=== PATIENT | female | born 1945 | race Caucasian/White ===

== ENCOUNTER 2024-12-10 08:47 | Outpatient (REF) | payer MEDICARE, SELFPAY ==
[2024-12-10 10:23] LABS: Blood Urea Nitrogen 20 mg/dL (9-16); Estimated Glomerular Filt Rate > 60
== END 2024-12-10 08:48 | disposition home or self-care (01) ==
LOC: HO.LAB 08:47
PROVIDERS: PCP Internal Medicine; Visit Provider Psychiatry & Neurology Neurology
DX: G40.209 Localization-related (focal) (partial) symptomatic epilepsy and epileptic syndromes with complex partial seizures, not intractable, without status epilepticus (principal); I67.9 Cerebrovascular disease, unspecified
CPT/HCPCS: 36415; 82565; 84520

== ENCOUNTER 2024-12-18 08:20 | Outpatient (REF) | payer MEDICARE, SELFPAY ==
--- NOTE | ~2024-12-18 | CT_ITS ---
EXAMINATION: CTA BRAIN WITH CONTRAST (cerebral aneurysm) CLINICAL INFORMATION: Concerning cerebral aneurysm COMPARISON: None available. TECHNIQUE: CTA of the head was performed in the axial plane from the skull to vertex using 75 mL Omnipaque 350 intravenous contrast. Additional reformatted multiplanar images including maximum intensity projection MIP images are generated on the CT workstation. Noncontrast CT head from the skull base to vertex. This CT examination was performed using dose optimization techniques as appropriate, variously including the following: *Automated exposure control *Adjustment of mA and/or kV according to patient size (this includes techniques or standardized protocols for targeted exams where dose is matched to indication/reason for exam; i.e. extremities or head) *Use of iterative reconstruction technique DLP: 992 mGy centimeter. FINDINGS: The degree of stenosis determined by criteria similar to NASCET. Brain: Bilateral multifocal patchy and confluent deep periventricular white matter hypodensity involving centrum semiovale and silva radiata. No acute intracranial hemorrhage, mass effect, midline shift, hydrocephalus or herniation. Grade 1 matter differentiation is normal. Posterior cranial fossa contents demonstrated no gross hemorrhage or masses. There is a prominent basilar artery. Calcified plaques in the cavernous supraclinoid segments both ICAs. No air-fluid levels in the paranasal sinuses. For pneumatization left frontal sinus. Tympanic cavities and mastoid air cells are aerated. Brain CTA: Anterior cerebral circulation: ICAs: There is a 37 mm contrast filled saccular abnormality at the 4:00 position centered in the supraclinoid segment right ICA with a broad-based neck. Calcified plaques in the cavernous segments both ICA. No focal stenosis. No abrupt cut off. The ICA terminus segments demonstrated no vascular irregularity. MCA's: No focal stenosis or abrupt cut off. Normal patency. Bifurcation/trifurcation demonstrated normal vascular irregularity. ACAs: Normal patency. No focal stenosis. No abrupt cut off. No vascular irregularity. Anterior communicant artery is patent without vascular irregularity. The ophthalmic arteries are patent without vascular irregularity at the origin segment. Posterior cerebral circulation: V3/V4 segments: Normal patency. No focal stenosis. No intimal flap. Right vertebral artery is dominant. Posterior inferior cerebellar arteries are patent. There is a common trunk with the anterior inferior cerebellar arteries for both PICA. Basilar artery: Normal patency. No focal stenosis. No intimal flap. Basilar artery tip demonstrates no vascular irregularity. Superior cerebellar arteries are patent. authorization rep: Normal patency. No focal stenosis. No abrupt cut off. Ancillary findings: Normal enhancement without intraluminal filling defects within the main cerebral venous sinuses. No enhancing mass, intra-axial or extra-axial compartment of the cranium. 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 Atherosclerosis disease, cavernous segments both ICA. Right vertebral artery is dominant. Electronically signed by: Adam Espinal MD 12/18/2024 09:44 AM EDT
--- OUTSIDE RECORDS SUMMARY | 2024-12-18 08:32 | XMS_ITS | Clinical Summary ---
Author Organization [facility] Address [address] [place] [address] Phone Care Team Providers Care Cargo Mate Name Role Phone Rae Jon Primary Care Provider [phone] Surgical History Surgery Date Site/Laterality Comments COLONOSCOPY 01/21/09 PROCEDURE: HISTORICAL COLONOSCOPY; COMMENT: normal; repeat in ten years Medical History Medical History Date Comments Mixed hyperlipidemia 10/07/2006 DX:Mixed hy perlipidemia Family History Relation Name Status Comments Brother 1 Alive dm Brother 2 Alive Brother 3 Alive Father (Age 54) lung cance r Mother (Age 85) Sister Alive Social History Tobacco Use Types Packs/Day Years Used Date Smoking Tobacco: Never Alcohol Use Standard Drinks/Week Comments No 0 (1 standard drink = 0.6 oz pur e alcohol) Comments Unknown Sex and Gender Information Value Date Recorded Sex Assigned at Not on file Legal Sex Female 12:30 AM EST Gender Identity Not on file Sexual Orientation Not on file Obstetrics History Last Filed Vital Signs Vital Sign Reading Time Taken Comments Blood Pressure 150/95 01/24/2024 1:08 PM EDT Sit ting L Arm Pulse 80 11/15/2023 11:40 AM EST Temperature - - Respiratory Rate - - Oxygen Saturation - - Inhaled Oxygen Concentration - - Weight 70.3 kg (155 lb) 01/24/2024 1:08 PM EDT Height 152.4 cm (5') 01/24/2024 1:08 PM EDT Body Mass Index 30.27 01/24/2024 1:08 PM EDT Plan of Treatment Health Maintenance Due Date Last Done Comments Zoster Vaccines (1 of 2) 1993 Pneumococcal Vaccine: 50+ Years (2 of 2 - PCV) 07/15/2010 07/15/2009 RSV Immunization Adult Patients (1 - 1-dose 75+ series) 2018 Depression Screening 08/19/2022 Falls Risk Assessment 08/19/2022 Medicare Annual Wellness Visit 08/19/2022 Osteoporosis Screening (Bone Density Screening) 08/19/2022 Social Influencers of Health Screening 08/19/2022 COVID-19 Vaccine ( season) 2024 08/14/2021, 11/10/2020, 10/20/2020 Hypertension/CHF/CAD Annual BMP Blood Test 09/29/2025 09/29/2024 Cholesterol Screening (Lipid Panel) 09/29/2029 09/29/2024 DTaP,Tdap,and Td Vaccines (2 - Td or Tdap) 04/17/2034 04/17/2024 Influenza Vaccine Completed 08/26/2024, , 08/06/2022, Additional history exists HIB Vaccines Aged Out No longer eligi ble based on patient's age to complete this topic HPV Vaccines Aged Out No longer eligi ble based on patient's age to complete this topic Hepatitis A Vaccines Aged Out No long er eligible based on patient's age to complete this topic Hepatitis B Vaccines Aged Out No long er eligible based on patient's age to complete this topic IPV Vaccines Aged Out No longer eligi ble based on patient's age to complete this topic MMR Vaccines Aged Out No longer eligi ble based on patient's age to complete this topic Meningococcal ACWY Vaccine Aged Out N o longer eligible based on patient's age to complete this topic Meningococcal B Vacine Aged Out No lo nger eligible based on patient's age to complete this topic RSV Immunization Patients Under 20 months Aged Out No longer eligible based on patient's age to complete this topic Varicella Vaccines Aged Out No longer eligible based on patient's age to complete this topic Procedures Procedure Name Priority Date/Time Associated Diagnosis Comments CBC WITH AUTO DIFFERENTIAL Routine 09/29/2024 10:12 AM EST Laboratory tests ordered as part of a complete physical exam (CPE) TIA (transient ischemic attack) GERD (gastroesophageal reflux disease) HTN (hypertension) HLD (hyperlipidemia) MAGNESIUM Routine 09/29/2024 10:12 AM EST Laboratory tests ordered as part of a complete physical exam (CPE) TIA (transient ischemic attack) GERD (gastroesophageal reflux disease) HTN (hypertension) HLD (hyperlipidemia) HEMOGLOBIN A1C Routine 09/29/2024 10:12 AM EST Laboratory tests ordered as part of a complete physical exam (CPE) TIA (transient ischemic attack) GERD (gastroesophageal reflux disease) HTN (hypertension) HLD (hyperlipidemia) CBC AND DIFFERENTIAL Routine 09/29/2024 10:12 AM EST Laboratory tests ordered as part of a complete physical exam (CPE) TIA (transient ischemic attack) GERD (gastroesophageal reflux disease) HTN (hypertension) HLD (hyperlipidemia) THYROID STIMULATING HORMONE Routine 09/29/2024 10:12 AM EST Laboratory tests ordered as part of a complete physical exam (CPE) TIA (transient ischemic attack) GERD (gastroesophageal reflux disease) HTN (hypertension) HLD (hyperlipidemia) BASIC METABOLIC PANEL Routine 09/29/2024 10:12 AM EST Laboratory tests ordered as part of a complete physical exam (CPE) TIA (transient ischemic attack) GERD (gastroesophageal reflux disease) HTN (hypertension) HLD (hyperlipidemia) CREATINE KINASE Routine 09/29/2024 10:12 AM EST Laboratory tests ordered as part of a complete physical exam (CPE) TIA (transient ischemic attack) GERD (gastroesophageal reflux disease) HTN (hypertension) HLD (hyperlipidemia) ASPARTATE AMINOTRANSFERASE Routine 09/29/2024 10:12 AM EST Laboratory tests ordered as part of a complete physical exam (CPE) TIA (transient ischemic attack) GERD (gastroesophageal reflux disease) HTN (hypertension) HLD (hyperlipidemia) ALANINE AMINOTRANSFERASE Routine 10:12 AM EST Laboratory tests ordered as part of a complete physical exam (CPE) TIA (transient ischemic attack) GERD (gastroesophageal reflux disease) HTN (hypertension) HLD (hyperlipidemia) LIPID PANEL WITH REFLEX TO DIRECT LDL Routine 09/29/2024 10:12 AM EST Laboratory tests ordered as part of a complete physical exam (CPE) TIA (transient ischemic attack) GERD (gastroesophageal reflux disease) HTN (hypertension) HLD (hyperlipidemia) from Last 3 Months Results * (ABNORMAL) Lipid panel with reflex to direct LDL (09/29/2024 10:12 AM EST) Cholesterol 239(H) 0 - 200 mg/dL LAB CHEMISTRY METHOD 09/29/2024 12:30 PM EST [facility] Triglycerides 302(H) 0 - 150 mg/dL LAB CHEMISTRY METHOD 09/29/2024 12:30 PM [facility] HDL 53 >=40 mg/dL LAB CHEMISTRY METHOD 09/29/2024 12:30 PM [facility] LDL Calculated 126(H) 0 - 100 mg/dL LAB CHEMISTRY METHOD 09/29/2024 12:30 PM EST [facility] VLDL Cholesterol Cruz 60.4 mg/dL LAB CHEMISTRY METHOD 09/29/2024 12:30 PM [facility] Non HDL Chol. (LDL+VLDL) 186(H) <145 mg/dL LAB CHEMISTRY METHOD 09/29/2024 12:30 PM [facility] Chol/HDL Ratio 4.5(H) 0.0 - 4.4 LAB CHEMISTRY METHOD 09/29/2024 12:30 PM [facility] Blood Venous blood specimen / Unknown Venipuncture / Unknown 09/29/2024 10:12 AM EST 09/29/2024 10:13 AM EST us Marcus Hernandez LAB BLOOD ORDERABLES Final Resul t [facility] [address] [place] [address], * (ABNORMAL) CBC auto differential (09/29/2024 10:12 AM [facility]) [facility] WBC 6.4 4.8 - 10.8 K/mcL LAB HEMETOLOGY METHOD 09/29/2024 11:18 AM [facility] RBC 4.70 3.80 - 4.80 M/mcL LAB HEMETOLOGY METHOD 09/29/2024 11:18 AM [facility] Hemoglobin 14.5 11.5 - 16.0 g/dL LAB HEMETOLOGY METHOD 09/29/2024 11:18 AM [facility] Hematocrit 44.2 35.0 - 47.0 % LAB HEMETOLOGY METHOD 09/29/2024 11:18 AM [facility] MCV 93.2 79.0 - 98.0 FL LAB HEMETOLOGY METHOD 09/29/2024 11:18 AM [facility] MCH 30.6 27.0 - 32.0 pcg LAB HEMETOLOGY METHOD 09/29/2024 11:18 AM [facility] MCHC 32.8 32.0 - 37.0 g/dL LAB HEMETOLOGY METHOD 09/29/2024 11:18 AM [facility] RDW 13.1 11.0 - 15.0 % LAB HEMETOLOGY METHOD 09/29/2024 11:18 AM [facility] Platelets 209 130 - 400 K/mcL LAB HEMETOLOGY METHOD 09/29/2024 11:18 AM [facility] MPV 11.5(H) 7.0 - 11.0 FL LAB HEMETOLOGY METHOD 09/29/2024 11:18 AM [facility] NRBC 0.0 <1.0 % LAB HEMETOLOGY METHOD 09/29/2024 11:18 AM [facility] NRBC Absolute 0.00 <0.10 K/mcL LAB HEMETOLOGY METHOD 09/29/2024 11:18 AM [facility] Neutrophils Relative 66.7 % LAB HEMETOLOGY METHOD 09/29/2024 11:18 AM [facility] Lymphocytes Relative 20.8 % LAB HEMETOLOGY METHOD 09/29/2024 11:18 AM [facility] Monocytes Relative 8.2 % LAB HEMETOLOGY METHOD 09/29/2024 11:18 AM [facility] Eosinophils Relative 2.6 % LAB HEMETOLOGY METHOD 09/29/2024 11:18 AM [facility] Basophils Relative 1.4 % LAB HEMETOLOGY METHOD 09/29/2024 11:18 AM [facility] Immature Granulocytes Relative 0.3 % LAB HEMETOLOGY METHOD 09/29/2024 11:18 AM [facility] Neutrophils Absolute 4.29 1.50 - 7.00 K/mcL LAB HEMETOLOGY METHOD 09/29/2024 11:18 AM [facility] Lymphocytes Absolute 1.34 1.00 - 5.00 K/mcL LAB HEMETOLOGY METHOD 09/29/2024 11:18 AM [facility] Monocytes Absolute 0.53 0.20 - 1.00 K/mcL LAB HEMETOLOGY METHOD 09/29/2024 11:18 AM [facility] Eosinophils Absolute 0.17 0.00 - 0.50 K/mcL LAB HEMETOLOGY METHOD 09/29/2024 11:18 AM [facility] Basophils Absolute 0.09 0.00 - 0.20 K/mcL LAB HEMETOLOGY METHOD 09/29/2024 11:18 AM [facility] Immature Granulocytes Absolute 0.02 0.00 - 0.03 K/mcL LAB HEMETOLOGY METHOD 09/29/2024 11:18 AM [facility] Blood Venous blood specimen / Unknown Venipuncture / Unknown 09/29/2024 10:12 AM EST 09/29/2024 10:13 AM EST Marcus Paul LAB BLOOD ORDERABLES Final Resul t Performing Organization Address City/[facility]/ZIP Co de Phone Number [facility] [address] [place] [address], [place] [phone] * Alanine aminotransferase (09/29/2024 10:12 AM EST) ALT (SGPT) 21 10 - 60 unit/L LAB CHEMISTRY METHOD 09/29/2024 12:15 PM EST [facility] Blood Venous blood specimen / Unknown Venipuncture / Unknown 09/29/2024 10:12 AM EST 09/29/2024 10:13 AM EST Marcus Seymourcruz LAB BLOOD ORDERABLES Final Resul t Performing Organization Address [facility]/ZIP Co de Phone Number [facility] [address] [place] [address], [place] [phone] * Aspartate aminotransferase (09/29/2024 10:12 AM EST) AST (SGOT) 15 10 - 42 unit/L LAB CHEMISTRY METHOD 09/29/2024 12:15 PM EST [facility] Blood Venous blood specimen / Unknown Venipuncture / Unknown 09/29/2024 10:12 AM EST 09/29/2024 10:13 AM EST Marcus Seymour LAB BLOOD ORDERABLES Final Resul t Performing Organization Address City/[facility]/ZIP Co de Phone Number [facility] [address] [place] [address], [place] [phone] * Thyroid stimulating hormone (09/29/2024 10:12 AM EST) TSH 2.17 0.40 - 4.00 mcIU/mL LAB CHEMISTRY METHOD 09/29/2024 11:38 AM EST [facility] Blood Venous blood specimen / Unknown Venipuncture / Unknown 09/29/2024 10:12 AM EST 09/29/2024 10:13 AM EST Marcus Mary LAB BLOOD ORDERABLES Final Resul t Performing Organization Address City/[facility]/ZIP Co de Phone Number [facility] [address] [place] [address], [place] [phone] * Magnesium (09/29/2024 10:12 AM EST) Magnesium 2.0 1.9 - 2.6 mg/dL LAB CHEMISTRY METHOD 09/29/2024 11:32 AM EST [facility] Blood Venous blood specimen / Unknown Venipuncture / Unknown 09/29/2024 10:12 AM EST 09/29/2024 10:13 AM EST Marcus Beverly LAB BLOOD ORDERABLES Final Resul t Performing Organization Address [facility]/ZIP Co de Phone Number [facility] [address] [place] [address], [place] [phone] * Hemoglobin A1c (09/29/2024 10:12 AM EST) Hemoglobin A1C 6.1 <6.5 % LAB CHEMISTRY METHOD 09/29/2024 9:27 PM EST [facility] Mean Bld Glu Estim. 128 mg/dL LAB CHEMISTRY METHOD 09/29/2024 9:27 PM EST [facility] Blood Venous blood specimen / Unknown Venipuncture / Unknown 09/29/2024 10:12 AM EST 09/29/2024 10:13 AM EST Marcus Beverly LAB BLOOD ORDERABLES Final Resul t Performing Organization Address City/[facility]/ZIP Co de Phone Number [facility] [address] [place] [address], [place] [phone] * Creatine kinase (09/29/2024 10:12 AM EST) Pathologist [facility] Total CK 80 22 - 269 unit/L LAB CHEMISTRY METHOD 09/29/2024 12:15 PM [facility] Blood Venous blood specimen / Unknown Venipuncture / Unknown 09/29/2024 10:12 AM EST 09/29/2024 10:13 AM EST Marcus Mary LAB BLOOD ORDERABLES Final Resul t [facility] [address] [place] [address], [place] [phone] * (ABNORMAL) Basic metabolic panel (09/29/2024 10:12 AM EST) [facility] Sodium 139 133 - 145 mmol/L LAB CHEMISTRY METHOD 09/29/2024 12:30 PM [facility] Potassium 4.2 3.5 - 5.5 mmol/L LAB CHEMISTRY METHOD 09/29/2024 12:30 PM [facility] Chloride 104 96 - 110 mmol/L LAB CHEMISTRY METHOD 09/29/2024 12:30 PM [facility] CO2 28 21 - 32 mmol/L LAB CHEMISTRY METHOD 09/29/2024 12:30 PM [facility] Anion Gap 7 3 - 11 LAB CHEMISTRY METHOD 09/29/2024 12:30 PM [facility] Glucose 111(H) 70 - 100 mg/dL LAB CHEMISTRY METHOD 09/29/2024 12:30 PM [facility] BUN 18 5 - 25 mg/dL LAB CHEMISTRY METHOD 09/29/2024 12:30 PM [facility] Creatinine 0.80 0.50 - 1.10 mg/dL LAB CHEMISTRY METHOD 09/29/2024 12:30 PM EST [facility] eGFR 74 >=60 mL/min/1. 73m2 LAB CHEMISTRY METHOD 09/29/2024 12:30 PM EST [facility] Comment:Calculation based on the??Chronic Kidney Disease Epidemiology Collaboration (CKD-EPI) equation refit??without adjustment for race. BUN/Creatinine Ratio 22.5 LAB CHEMISTRY METHOD 09/29/2024 12:30 PM EST [facility] Calcium 9.5 8.5 - 10.5 mg/dL LAB CHEMISTRY METHOD 09/29/2024 12:30 PM EST [facility] Blood Venous blood specimen / Unknown Venipuncture / Unknown 09/29/2024 10:12 AM EST 09/29/2024 10:13 AM EST us Marcus Hernandez LAB BLOOD ORDERABLES Final Resul t [facility]) [facility] [address] [place] [address], from Last 3 Months Insurance [employer] Care Teams Cargo Mate Relationship Specialty Start Date End Date Jon Mcbride DO [address] [place] [phone] PCP - General 06/20/20
[2024-12-18] MEDS: iohexoL 350 MG/ML 75 ML INFUS..BTL IV (09:12)
== END 2024-12-18 08:21 | disposition home or self-care (01) ==
LOC: HO.CT 08:20
PROVIDERS: PCP Internal Medicine; Visit Provider Psychiatry & Neurology Neurology
DX: I67.1 Cerebral aneurysm, nonruptured (principal)
CPT/HCPCS: 70496; Q9967

== ENCOUNTER → 2024-12-18 08:23 | Outpatient (BNV) | payer MEDICARE, SELFPAY | PROVIDERS: PCP Internal Medicine; Visit Provider Radiology Diagnostic Radiology | DX: I67.1 Cerebral aneurysm, nonruptured (principal); I65.23 Occlusion and stenosis of bilateral carotid arteries | CPT/HCPCS: 70496 ==